=== PATIENT | female | born 1960 | race Two or more races ===

== ENCOUNTER 2017-06-19 09:41 | Outpatient (CLI) | payer OTHER ==
[~2017-06-19 09:41] MED LIST: EFFEXOR XR75 MG PO; EFFEXOR25 MG; VASOTEC2.5 MG
== END 2017-06-19 09:59 | disposition home or self-care (01) ==
LOC: MAMO-SONO 09:41
DX: Z12.31 Encounter for screening mammogram for malignant neoplasm of breast (principal); C50.919 Malignant neoplasm of unspecified site of unspecified female breast; N64.89 Other specified disorders of breast

== ENCOUNTER 2017-06-19 10:49 | Outpatient (CLI) | payer OTHER | END 2017-06-19 11:00 | disposition home or self-care (01) | LOC: NUCLEAR 10:49 | DX: M15.0 Primary generalized (osteo)arthritis (principal); M81.0 Age-related osteoporosis without current pathological fracture ==

== ENCOUNTER 2017-07-28 09:18 | Outpatient (CLI) | payer OTHER | END 2017-07-28 09:27 | disposition home or self-care (01) | LOC: SONOGRAMA 09:18 | DX: N60.11 Diffuse cystic mastopathy of right breast (principal); N60.12 Diffuse cystic mastopathy of left breast ==

== ENCOUNTER 2017-11-28 09:01 | Outpatient (CLI) | payer OTHER ==
[~2017-11-28 09:01] MED LIST changes: +BENTYL10 MG/1 ML; +PROTONIX40 MG; +VASOTEC5 MG; +ZANTAC300 MG
== END 2017-11-28 09:08 | disposition home or self-care (01) ==
LOC: RAD 501 09:01
DX: K80.10 Calculus of gallbladder with chronic cholecystitis without obstruction (principal); Z01.811 Encounter for preprocedural respiratory examination

== ENCOUNTER 2017-12-12 05:42 | Day surgery (SDC) | payer OTHER ==
[~2017-12-12 05:42] MED LIST changes: +CITALOPRAM HBR10 MG PO
== END 2017-12-12 13:55 | disposition home or self-care (01) ==
LOC: CIR.AMB 05:42
DX: K80.10 Calculus of gallbladder with chronic cholecystitis without obstruction (principal)